=== PATIENT | male | born 1930 | race Caucasian/White ===

== ENCOUNTER 2017-11-11 23:30 | Inpatient (IN) ==
[2017-11-12] MEDS ORDERED: SODIUM CHLORIDE 0.9% 1,000 ML IV STA (00:03)
[2017-11-12] MEDS ORDERED: ACETAMINOPHEN 500 MG TABLET PO STA (00:03)
[2017-11-12] MEDS ORDERED: KETOROLAC 30 MG/1 ML VIAL IV STA (00:04)
[2017-11-12] MEDS ORDERED: KETOROLAC 30 MG/1 ML VIAL ONE (00:10)
[2017-11-12] MEDS ORDERED: ACETAMINOPHEN 500 MG TABLET ONE (00:11)
[2017-11-12] MEDS ORDERED: ALUM/MAG/SIMETH/LIDO VISC 1:1 30 ML BOTTLE PO STA (00:22)
[2017-11-12] MEDS ORDERED: PANTOPRAZOLE 40 MG VIAL IV STA (00:22)
[2017-11-12] MEDS ORDERED: ALUM/MAG/SIMETH/LIDO VISC 1:1 30 ML BOTTLE PO ONE (00:57)
[2017-11-12] MEDS ORDERED: PANTOPRAZOLE 40 MG VIAL IV ONE (00:57)
[2017-11-12 01:00] LABS: Basophils # 0.1 10*3/uL (0.0-0.2); Basophils % 0.5 % (0.0-0.8); Eosinophils # 0.1 10*3/uL (0.0-0.87); Eosinophils % 1.3 % (0.00-10.9); Hematocrit 42.9 VOL% (42.0-52.0); Immature Granulocytes % 0.4 %; Immature Granulocytes Absolute 0.04 #; Lymphocytes # 0.9 10*3/uL (1.4-4.0); Lymphocytes % 8.5 % (21.2-54.2); Mean Corpuscular Hemoglobin 33 PG (27-34); Mean Corpuscular Volume 94.5 FL (87-102); Mean Platelet Volume 9.6 FL (9.6-12.0); Monocytes # 0.6 10*3/uL (0.11-0.8); Monocytes % 5.6 % (1.7-12.7); Neutrophils # 9.2 10*3/uL (1.4-7.4); Neutrophils % 83.7 % (38.7-73.9); Platelet Count 157 T/CUMM (130-400); Red Blood Count 4.54 MC/CUMM (3.8-5.5); White Blood Count 10.9 T/CUMM (4-12)
[2017-11-12 01:25] LABS: Albumin 4.1 G/DL (3.4-5.0); Bilirubin,Total 0.5 MG/DL (0.2-1.0); Calcium 8.9 MG/DL (8.5-10.1); Total Protein 7.9 G/DL (6.4-8.3)
[2017-11-12 01:26] LABS: Osmolality,Calculated 283.4 MOS/KG (273-304); Potassium 4.6 MMOL/L (3.5-5.1)
[2017-11-12 02:38] LABS: Apearance,Urine CLEAR (Clear); Bacteria,Urine Occasional /HPF (Few); Bilirubin,Urine Negative (Negative); Blood, Urine Negative (Negative); Glucose,Urine (UA) Negative (Negative); Ketones,Urine Negative (Negative); Mucus,Urine Occasional /LPF (Occasional); Nitrite,Urine Negative (Negative); Protein,Urine Negative; RBC,Urine 6 /HPF (0-4); Squamous Epithelial Cell,Urine Occasional /HPF (0-10); Urine Color Yellow (Yellow); Urine Specific Gravity 1.013 (1.001-1.035); Urine Urobilinogen < 2.0 EU/DL (0.2-1.0); WBC,Urine 18 /HPF (0-6)
[2017-11-12] MEDS ORDERED: CEFEPIME 2,000 MG in SODIUM CHLORIDE 0.9% 100 ML IV STA (03:22)
[2017-11-12] MEDS ORDERED: metroNIDAZOLE INJ 500 MG in PREMIX 1 EACH IV STA (03:22)
[2017-11-12] MEDS ORDERED: ONDANSETRON 4 MG/2 ML VIAL IV PRN (03:23)
[2017-11-12] MEDS ORDERED: CEFEPIME 2,000 MG VIAL ONE (03:30)
[2017-11-12] MEDS ORDERED: metroNIDAZOLE 500 MG/100 ML PREMIX IV ONE (03:30)
[2017-11-12] MEDS: PIPERACILLIN/TAZOBACTAM 3,375 MG in SODIUM CHLORIDE 0.9% 100 ML IV SCH ×3 (05:20→20:36)
[2017-11-12] MEDS: DEXTROSE 5% LACTATED RINGERS 1,000 ML IV SCH ×3 (05:20→20:39)
[2017-11-12] MEDS: PANTOPRAZOLE 40 MG TABLET PO SCH ×2 (07:52→11:05)
[2017-11-12] MEDS: ENOXAPARIN 40 MG/0.4 ML SYRINGE SUBCUT SCH (20:36)
[2017-11-13] MEDS: PIPERACILLIN/TAZOBACTAM 3,375 MG in SODIUM CHLORIDE 0.9% 100 ML IV SCH ×3 (04:15→20:28)
[2017-11-13] MEDS: PANTOPRAZOLE 40 MG TABLET PO SCH (08:45)
[2017-11-13] MEDS: MORPHINE 2 MG/1 ML SYRINGE IV PRN ×2 (08:48→23:00)
[2017-11-13] MEDS: DEXTROSE 5% LACTATED RINGERS 1,000 ML IV SCH ×2 (13:04→20:29)
[2017-11-13] MEDS: ENOXAPARIN 40 MG/0.4 ML SYRINGE SUBCUT SCH (20:27)
[2017-11-14] MEDS: PIPERACILLIN/TAZOBACTAM 3,375 MG in SODIUM CHLORIDE 0.9% 100 ML IV SCH ×3 (05:10→21:45)
[2017-11-14] MEDS: DEXTROSE 5% LACTATED RINGERS 1,000 ML IV SCH (05:11)
[2017-11-14] MEDS: PANTOPRAZOLE 40 MG TABLET PO SCH (09:00)
[2017-11-14] MEDS: ENOXAPARIN 40 MG/0.4 ML SYRINGE SUBCUT SCH (21:45)
[2017-11-15] MEDS: DEXTROSE 5% LACTATED RINGERS 1,000 ML IV SCH ×2 (02:32→10:04)
[2017-11-15] MEDS: PIPERACILLIN/TAZOBACTAM 3,375 MG in SODIUM CHLORIDE 0.9% 100 ML IV SCH ×3 (05:00→20:57)
[2017-11-15 06:02] LABS: Calcium 8.2 MG/DL (8.5-10.1); Osmolality,Calculated 288.8 MOS/KG (273-304); Potassium 3.8 MMOL/L (3.5-5.1)
[2017-11-15 06:05] LABS: Basophils % 0.5 % (0.0-0.8); Eosinophils # 0.5 10*3/uL (0.0-0.87); Eosinophils % 6.8 % (0.00-10.9); Hematocrit 35.1 VOL% (42.0-52.0); Immature Granulocytes % 0.4 %; Immature Granulocytes Absolute 0.03 #; Lymphocytes # 0.9 10*3/uL (1.4-4.0); Lymphocytes % 11.6 % (21.2-54.2); Mean Corpuscular HGB Conc 34.2 GM/DL (32-36); Mean Corpuscular Hemoglobin 33 PG (27-34); Mean Corpuscular Volume 96.2 FL (87-102); Mean Platelet Volume 10.4 FL (9.6-12.0); Monocytes # 0.5 10*3/uL (0.11-0.8); Monocytes % 6.7 % (1.7-12.7); Neutrophils # 5.6 10*3/uL (1.4-7.4); Platelet Count 130 T/CUMM (130-400); Red Blood Count 3.65 MC/CUMM (3.8-5.5); Red Cell Distribution Width 13.3 % (9.3-17.3)
[2017-11-15 06:07] LABS: White Blood Count 7.6 T/CUMM (4-12)
[2017-11-15] MEDS: PANTOPRAZOLE 40 MG TABLET PO SCH (09:06)
[2017-11-15] MEDS: ENOXAPARIN 40 MG/0.4 ML SYRINGE SUBCUT SCH (20:56)
[2017-11-15] MEDS: MORPHINE 2 MG/1 ML SYRINGE IV PRN (21:00)
[2017-11-16] MEDS: PIPERACILLIN/TAZOBACTAM 3,375 MG in SODIUM CHLORIDE 0.9% 100 ML IV SCH ×3 (04:52→21:50)
[2017-11-16 06:00] LABS: Basophils % 0.3 % (0.0-0.8); Eosinophils # 0.1 10*3/uL (0.0-0.87); Hematocrit 36.9 VOL% (42.0-52.0); Hemoglobin 12.8 GM/DL (14.0-18.0); Immature Granulocytes % 0.4 %; Immature Granulocytes Absolute 0.03 #; Lymphocytes # 0.7 10*3/uL (1.4-4.0); Lymphocytes % 9.2 % (21.2-54.2); Mean Corpuscular HGB Conc 34.7 GM/DL (32-36); Mean Corpuscular Hemoglobin 33 PG (27-34); Mean Corpuscular Volume 94.1 FL (87-102); Mean Platelet Volume 10.3 FL (9.6-12.0); Monocytes # 0.8 10*3/uL (0.11-0.8); Monocytes % 10.2 % (1.7-12.7); Neutrophils # 6.3 10*3/uL (1.4-7.4); Neutrophils % 78.9 % (38.7-73.9); Platelet Count 148 T/CUMM (130-400); Red Blood Count 3.92 MC/CUMM (3.8-5.5); Red Cell Distribution Width 13.2 % (9.3-17.3)
[2017-11-16] MEDS: DEXTROSE 5% LACTATED RINGERS 1,000 ML IV SCH (08:30)
[2017-11-16] MEDS: PANTOPRAZOLE 40 MG TABLET PO SCH (09:36)
[2017-11-16 12:44] LABS: Calcium 8.4 MG/DL (8.5-10.1); Osmolality,Calculated 289.8 MOS/KG (273-304); Potassium 4.6 MMOL/L (3.5-5.1); Thyroid Stimulating Hormone 0.54 uIU/ml (0.358-3.74)
[2017-11-16 12:49] LABS: Folate > 24.0 NG/ML (5.4-24.0); Vitamin B12 243 PG/ML (211-911)
[2017-11-16] MEDS: SODIUM CHLORIDE 0.9% 1,000 ML IV SCH (12:50)
[2017-11-16] MEDS ORDERED: CYANOCOBALAMIN 1000 MCG/1 ML VIAL IM ONE (18:33)
[2017-11-16] MEDS: CHOLECALCIFEROL 1,000 UNIT TABLET PO SCH (20:01)
[2017-11-16] MEDS: CIPROFLOXACIN INJ 400 MG in PREMIX 1 EACH IV SCH (20:01)
[2017-11-16 20:08] LABS: INR 1.5; PT Patient Result 16.1 SECS
[2017-11-16] MEDS: ENOXAPARIN 40 MG/0.4 ML SYRINGE SUBCUT SCH (21:51)
[2017-11-17] MEDS: PIPERACILLIN/TAZOBACTAM 3,375 MG in SODIUM CHLORIDE 0.9% 100 ML IV SCH ×3 (05:17→22:35)
[2017-11-17] MEDS: SODIUM CHLORIDE 0.9% 1,000 ML IV SCH ×2 (05:28→12:42)
[2017-11-17 05:44] LABS: INR 1.6; PT Patient Result 16.9 SECS
[2017-11-17 05:49] LABS: Basophils % 0.3 % (0.0-0.8); Eosinophils # 0.3 10*3/uL (0.0-0.87); Eosinophils % 3.6 % (0.00-10.9); Hematocrit 34.4 VOL% (42.0-52.0); Hemoglobin 12.1 GM/DL (14.0-18.0); Immature Granulocytes % 0.4 %; Immature Granulocytes Absolute 0.04 #; Lymphocytes # 0.8 10*3/uL (1.4-4.0); Lymphocytes % 9.1 % (21.2-54.2); Mean Corpuscular HGB Conc 35.2 GM/DL (32-36); Mean Corpuscular Hemoglobin 33 PG (27-34); Mean Platelet Volume 10.3 FL (9.6-12.0); Monocytes # 0.7 10*3/uL (0.11-0.8); Monocytes % 7.3 % (1.7-12.7); Neutrophils # 7.1 10*3/uL (1.4-7.4); Neutrophils % 79.3 % (38.7-73.9); Platelet Count 137 T/CUMM (130-400); Red Blood Count 3.66 MC/CUMM (3.8-5.5); Red Cell Distribution Width 13.1 % (9.3-17.3); White Blood Count 8.9 T/CUMM (4-12)
[2017-11-17 06:27] LABS: Calcium 7.9 MG/DL (8.5-10.1); Potassium 3.5 MMOL/L (3.5-5.1)
[2017-11-17] MEDS: PANTOPRAZOLE 40 MG TABLET PO SCH (08:13)
[2017-11-17] MEDS: CHOLECALCIFEROL 1,000 UNIT TABLET PO SCH (08:13)
[2017-11-17] MEDS: CIPROFLOXACIN INJ 400 MG in PREMIX 1 EACH IV SCH ×2 (09:33→20:26)
[2017-11-17] MEDS ORDERED: DIAZEPAM 5 MG TABLET PO ONE (14:00)
[2017-11-17] MEDS: ENOXAPARIN 40 MG/0.4 ML SYRINGE SUBCUT SCH (21:14)
[2017-11-18] MEDS: SODIUM CHLORIDE 0.9% 1,000 ML IV SCH ×2 (03:01→05:03)
[2017-11-18 05:45] LABS: Basophils % 0.5 % (0.0-0.8); Eosinophils # 0.7 10*3/uL (0.0-0.87); Eosinophils % 9.7 % (0.00-10.9); Hematocrit 34.8 VOL% (42.0-52.0); Hemoglobin 11.9 GM/DL (14.0-18.0); Immature Granulocytes % 0.4 %; Immature Granulocytes Absolute 0.03 #; Lymphocytes # 1.1 10*3/uL (1.4-4.0); Lymphocytes % 15.5 % (21.2-54.2); Mean Corpuscular HGB Conc 34.2 GM/DL (32-36); Mean Corpuscular Hemoglobin 33 PG (27-34); Mean Corpuscular Volume 96.4 FL (87-102); Mean Platelet Volume 10.6 FL (9.6-12.0); Monocytes # 0.5 10*3/uL (0.11-0.8); Monocytes % 6.4 % (1.7-12.7); Neutrophils % 67.5 % (38.7-73.9); Platelet Count 143 T/CUMM (130-400); Red Blood Count 3.61 MC/CUMM (3.8-5.5); Red Cell Distribution Width 13.1 % (9.3-17.3); White Blood Count 7.4 T/CUMM (4-12)
[2017-11-18 05:53] LABS: INR 1.8; PT Patient Result 18.7 SECS
[2017-11-18 06:10] LABS: Giant Platelets Few; Hypochromasia Slight; Ovalocytes Slight; Platelet Estimate Normal
[2017-11-18] MEDS: PIPERACILLIN/TAZOBACTAM 3,375 MG in SODIUM CHLORIDE 0.9% 100 ML IV SCH ×3 (06:12→23:05)
[2017-11-18 06:26] LABS: Osmolality,Calculated 288.7 MOS/KG (273-304); Potassium 3.4 MMOL/L (3.5-5.1)
[2017-11-18] MEDS: PANTOPRAZOLE 40 MG TABLET PO SCH (09:03)
[2017-11-18] MEDS: CHOLECALCIFEROL 1,000 UNIT TABLET PO SCH (09:03)
[2017-11-18] MEDS: CIPROFLOXACIN INJ 400 MG in PREMIX 1 EACH IV SCH (10:27)
[2017-11-18 12:35] LABS: Apearance,Urine CLEAR (Clear); Bilirubin,Urine Negative (Negative); Blood, Urine Small mg/dL (Negative); Glucose,Urine (UA) Negative (Negative); Ketones,Urine 5 mg/dL (Negative); Mucus,Urine Occasional /LPF (Occasional); Nitrite,Urine Negative (Negative); Protein,Urine Negative; RBC,Urine 2 /HPF (0-4); Squamous Epithelial Cell,Urine Occasional /HPF (0-10); Urine Color Yellow (Yellow); Urine Specific Gravity 1.015 (1.001-1.035); WBC,Urine 1 /HPF (0-6)
[2017-11-18] MEDS: FLUCONAZOLE INJ 200 MG in PREMIX 1 EACH IV SCH (12:37)
[2017-11-18] MEDS: ENOXAPARIN 40 MG/0.4 ML SYRINGE SUBCUT SCH (21:17)
[2017-11-19 05:38] LABS: Basophils # 0.1 10*3/uL (0.0-0.2); Basophils % 0.8 % (0.0-0.8); Eosinophils # 0.7 10*3/uL (0.0-0.87); Eosinophils % 10.8 % (0.00-10.9); Hematocrit 36.9 VOL% (42.0-52.0); Hemoglobin 12.8 GM/DL (14.0-18.0); Immature Granulocytes % 0.6 %; Immature Granulocytes Absolute 0.04 #; Lymphocytes # 1.2 10*3/uL (1.4-4.0); Lymphocytes % 18.3 % (21.2-54.2); Mean Corpuscular HGB Conc 34.7 GM/DL (32-36); Mean Corpuscular Hemoglobin 33 PG (27-34); Mean Corpuscular Volume 94.6 FL (87-102); Mean Platelet Volume 10.3 FL (9.6-12.0); Monocytes # 0.5 10*3/uL (0.11-0.8); Monocytes % 7.6 % (1.7-12.7); Neutrophils # 3.9 10*3/uL (1.4-7.4); Neutrophils % 61.9 % (38.7-73.9); Platelet Count 186 T/CUMM (130-400); Red Cell Distribution Width 13.2 % (9.3-17.3); White Blood Count 6.3 T/CUMM (4-12)
[2017-11-19] MEDS: PIPERACILLIN/TAZOBACTAM 3,375 MG in SODIUM CHLORIDE 0.9% 100 ML IV SCH ×3 (06:03→23:12)
[2017-11-19 06:05] LABS: Hypochromasia Slight; Ovalocytes Slight
[2017-11-19 06:06] LABS: Microcytosis Slight; Platelet Estimate Adequate
[2017-11-19 06:07] LABS: Calcium 8.3 MG/DL (8.5-10.1); Osmolality,Calculated 288.7 MOS/KG (273-304); Potassium 3.5 MMOL/L (3.5-5.1)
[2017-11-19 06:32] LABS: INR 1.5; PT Patient Result 16.1 SECS
[2017-11-19] MEDS: CHOLECALCIFEROL 1,000 UNIT TABLET PO SCH (08:46)
[2017-11-19] MEDS: PANTOPRAZOLE 40 MG TABLET PO SCH (08:46)
[2017-11-19] MEDS: FLUCONAZOLE INJ 200 MG in PREMIX 1 EACH IV SCH (13:31)
[2017-11-19] MEDS: ENOXAPARIN 40 MG/0.4 ML SYRINGE SUBCUT SCH (21:39)
[2017-11-20 05:49] LABS: INR 1.4; PT Patient Result 14.4 SECS
[2017-11-20] MEDS: PIPERACILLIN/TAZOBACTAM 3,375 MG in SODIUM CHLORIDE 0.9% 100 ML IV SCH ×3 (07:24→23:16)
[2017-11-20] MEDS: PANTOPRAZOLE 40 MG TABLET PO SCH (09:45)
[2017-11-20] MEDS: CHOLECALCIFEROL 1,000 UNIT TABLET PO SCH (09:45)
[2017-11-20] MEDS: FLUCONAZOLE INJ 200 MG in PREMIX 1 EACH IV SCH (13:43)
[2017-11-20] MEDS: ENOXAPARIN 40 MG/0.4 ML SYRINGE SUBCUT SCH (20:07)
[2017-11-21] MEDS: PIPERACILLIN/TAZOBACTAM 3,375 MG in SODIUM CHLORIDE 0.9% 100 ML IV SCH (06:10)
[2017-11-21 06:25] LABS: INR 1.3; PT Patient Result 13.9 SECS
[2017-11-21] MEDS: CHOLECALCIFEROL 1,000 UNIT TABLET PO SCH (09:28)
[2017-11-21] MEDS: PANTOPRAZOLE 40 MG TABLET PO SCH (09:28)
[2017-11-21 11:20] VITALS: BP 141/81
[2017-11-21] MEDS: FLUCONAZOLE INJ 200 MG in PREMIX 1 EACH IV SCH (11:33)
[2017-11-21] MEDS ORDERED: AMOXICILLIN/CLAV 875 MG TABLET PO SCH (21:00)
[2017-11-22] MEDS ORDERED: FLUCONAZOLE 200 MG TABLET PO SCH (12:00)
== END 2017-11-21 15:20 | disposition home health service (06) | DRG 392 ==
LOC: N.ED 23:30 → N.EDINP 11-12 03:23 → N.3E 11-12 04:23
PROVIDERS: ADMIT Surgery; ATTEND Surgery